=== PATIENT | female | born 1940 | race Caucasian/White ===

== ENCOUNTER 2018-06-10 08:43 | Day surgery (SDC) | payer MEDICARE, OTHER ==
[2018-06-10] MEDS ORDERED: Sodium Chloride 0.9% 10 ML Syringe FLUSH PRN (09:00)
[2018-06-10] MEDS ORDERED: Lactated Ringers 1,000 ML IV SCH (09:00)
[2018-06-10] MEDS ORDERED: Lactated Ringers 1,000 ML IV ONE (09:09)
--- NOTE | 2018-06-10 09:55 | PCM.HPR ---
H & P Addendum review - H & P Addendum Review Date of Original H & P: 05/26/18 Date Reviewed: 06/10/18 Time Reviewed: 09:55 Patient was Examined: No Changes
[2018-06-10] MEDS ORDERED: Propofol 200 MG/20 ML SDV ONE ×2 (10:12→10:14)
[2018-06-10] MEDS ORDERED: Midazolam 1 MG/ML 2 ML SDV ONE ×2 (10:12→10:14)
[2018-06-10] MEDS ORDERED: fentaNYL 100 MCG/2 ML SDV ONE ×2 (10:12→10:14)
--- NOTE | 2018-06-10 10:48 | PCM.OPNOTE ---
- General Post-Op/Procedure Note Date of Surgery/Procedure: 06/10/18 Operative Procedure(s): Colonoscopy with polypectomy Findings: Desc Colon polyps Diverticulosis Pre Op Diagnosis: FH Colon Ca; Hx Polyps Post-Op Diagnosis: Same Anesthesia Technique: MAC Primary Surgeon: Justin Betancur Anesthesia Provider: Vivi Zuniga Pathology: polyp EBL in mLs: 0 Complications: None Condition: Good Free Text/Narrative:: Intake & Output 06/09/18 06/10/18 06/10/18 22:59 06:59 14:59 Intake Total 500 Balance 500
--- NOTE | 2018-06-10 14:15 | OR ---
Date of Procedure: 06/10/2018 PREOPERATIVE DIAGNOSES: 1. Family history of colon cancer. 2. Personal history of colon polyps. POSTOPERATIVE DIAGNOSES: 1. Descending colon polyp. 2. Diverticulosis. PROCEDURE: Colonoscopy. ANESTHESIA: IV sedation. DESCRIPTION OF PROCEDURE: The patient was brought to procedure room where she was placed on her left side and IV sedation administered. Digital rectal exam was performed which was normal. Colonoscope was inserted and advanced to the level of the cecum with some difficulty getting through a tortuous colon, requiring pressure on the abdomen. The prep was good and surfaces were well visualized. Upon withdrawing the scope, the ascending, transverse, and descending colon had a few scattered diverticula. A small 6-mm sessile polyp was located near the junction of the descending colon and sigmoid colon that was removed with a cautery snare and retrieved in the polyp trap. Sigmoid colon was quite tortuous with multiple diverticula present. Rectum was normal and retroflexion was normal. Air was removed and the scope withdrawn. The patient tolerated the procedure well returned to recovery in stable condition. I will have the patient followup with ROSA Cantu, next week for review of pathology report. If the polyp was adenomatous, she should undergo repeat colonoscopy again in 3 years. If polyp is hyperplastic, she could wait 5 years until her next colonoscopy. YAW MILLARD MD /[id number]
== END 2018-06-10 11:40 | disposition home or self-care (01) ==
LOC: LL.SDS 08:43
PROVIDERS: ATTEND Surgery
DX: Z12.11 Encounter for screening for malignant neoplasm of colon (principal); D12.4 Benign neoplasm of descending colon; K57.30 Diverticulosis of large intestine without perforation or abscess without bleeding; K56.2 Volvulus; E11.22 Type 2 diabetes mellitus with diabetic chronic kidney disease; N18.3 Chronic kidney disease, stage 3 (moderate); D64.81 Anemia due to antineoplastic chemotherapy; C88.4 Extranodal marginal zone B-cell lymphoma of mucosa-associated lymphoid tissue [MALT-lymphoma]; D70.1 Agranulocytosis secondary to cancer chemotherapy; T45.1X5A Adverse effect of antineoplastic and immunosuppressive drugs, initial encounter; E78.00 Pure hypercholesterolemia, unspecified; Z86.010 Personal history of colon polyps; Z80.0 Family history of malignant neoplasm of digestive organs; Z79.82 Long term (current) use of aspirin; Z79.84 Long term (current) use of oral hypoglycemic drugs; Z79.899 Other long term (current) drug therapy
CPT/HCPCS: 82962; J2250; J2704; J3010; J7120

== ENCOUNTER 2024-06-23 07:40 | Day surgery (SDC) | payer MEDICARE, OTHER ==
[2024-06-23] MEDS: Lactated Ringers 1,000 ML IV SCH (07:47)
[2024-06-23] MEDS ORDERED: Sodium Chloride 0.9% 10 ML Syringe FLUSH PRN (08:00)
[2024-06-23] MEDS ORDERED: Propofol 200 MG/20 ML SDV ONE (08:28)
[2024-06-23] MEDS ORDERED: Midazolam 1 MG/ML 2 ML SDV ONE (08:28)
[2024-06-23 08:30] LABS: GLUCOSE,POC 156 mg/dL (70-99)
[2024-06-23 09:59] VITALS: BP 147/68; PULSE 66
== END 2024-06-23 10:20 | disposition home or self-care (01) ==
LOC: LL.SDS 07:40
PROVIDERS: ATTEND Surgery
DX: Z12.11 Encounter for screening for malignant neoplasm of colon (principal); D12.3 Benign neoplasm of transverse colon; K57.30 Diverticulosis of large intestine without perforation or abscess without bleeding; E11.22 Type 2 diabetes mellitus with diabetic chronic kidney disease; N18.32 Chronic kidney disease, stage 3b; Z80.0 Family history of malignant neoplasm of digestive organs; Z86.010 Personal history of colon polyps
CPT/HCPCS: 00812; 82947; 88305; J2250; J2704; J7120